=== PATIENT | female | born 1970 | race Caucasian/White ===

== ENCOUNTER → 2022-07-13 16:00 | Outpatient (BNVA) | payer OTHER, SELFPAY | PROVIDERS: Visit Provider Nurse Practitioner Women's Health | DX: N93.9 Abnormal uterine and vaginal bleeding, unspecified (principal) | CPT/HCPCS: 87624; 88305 ==

== ENCOUNTER → 2022-07-20 13:02 | Outpatient (BNVA) | payer OTHER, SELFPAY | PROVIDERS: Visit Provider Nurse Practitioner Women's Health | DX: N93.9 Abnormal uterine and vaginal bleeding, unspecified (principal); N85.2 Hypertrophy of uterus | CPT/HCPCS: 76830 ==

== ENCOUNTER 2022-09-27 11:51 | Observation (INO) | payer OTHER, MEDICAID, SELFPAY ==
[2022-09-26 13:31] VITALS: BMI 36.8
[2022-09-27] VITALS (12 sets, daily range): BP systolic 101–155; BP diastolic 61–91; PULSE 72–86; RESP 15–20; TEMP 36.1–36.7; O2SAT 90–98; BMI 36.8
[2022-09-27] MEDS: scopolamine 1.5 Patch 1 PATCH TRANSDERMA (08:36)
[2022-09-27 08:41] LABS: Basophils # 0.1 10^3/uL (0.0-0.1); Basophils % 0.7 %; Eosinophils # 0.1 10^3/uL (0.0-0.8); Eosinophils % 1.3 %; Hematocrit 45.2 % (37.0-47.0); Hemoglobin 14.7 g/dL (11.5-15.3); Lymphocytes % 23.2 %; Mean Corpuscular HGB Conc 32.5 g/dL (30.0-36.0); Mean Corpuscular Hemoglobin 29.9 pg (28.0-34.0); Mean Corpuscular Volume 92.1 fl (81-99); Mean Platelet Volume 11.3 fL (7.4-10.4); Monocytes # 0.6 10^3/uL (0.2-0.9); Monocytes % 7.3 %; Neutrophils # 5.65 10^3/uL (1.8-7.7); Neutrophils % 67.1 %; Nucleated Red Blood Cells % 0 %; Platelet Count 253 10^3/cmm (130-400); Red Blood Count 4.91 10^6/uL (4.1-5.3); Red Cell Distribution Width 14.1 % (12.1-15.1); White Blood Count 8.4 10^3/uL (4.0-10.0)
[2022-09-27] MEDS: sodium chloride 0.9% 500 ML IV (08:44)
[2022-09-27 09:00] LABS: OR HCG Qualitative Urine Negative (Negative)
[2022-09-27 09:22] LABS: Glucose Urine UA 2+ (Normal); Ketones Urine Negative (Negative); Protein Urine Trace (Negative); Urine Appearance Clear (CLEAR); Urine Color Yellow (Yellow); pH Urine 5 (5-7)
[2022-09-27 09:23] LABS: Add Urine Microscopic? YES; Bilirubin Urine 1+ (Negative); Blood Urine Trace (Negative); Leukocyte Esterase Urine 1+ (Negative); Nitrate Urine Negative (Negative); RBC Urine 0-4 /hpf (0-2); Urobilinogen Urine Neg (Negative)
[2022-09-27 09:24] LABS: Bacteria Urine 2+ /hpf; Mucus Urine TRACE /hpf; Squamous Epithelial Cell Urine 15-25 /hpf (0-5)
[2022-09-27 09:25] LABS: Add Urine Culture? No
--- NOTE | 2022-09-27 09:39 | ANES.PREANE2 ---
Pre-Anesthetic Assessment Height/Weight: Height 1.65 m Weight 100.244 kg O2 Del Method Room Air 09/27/22 08:12 Preop Diagnosis: Abnormal uterine bleeding, menorrhagia Operation Date: 09/27/22 10:10 Proposed Procedures p Total vaginal hysterectomy, bilateral salpingo-oophorectomy 37274, N93.9(Not Applicable) - Lacho Ho MD s Salpingo-Oophorectomy (Vaginal)(Not Applicable) - Lacho Ho MD Familial anesthetic complications: None Was Beta Carol Ann taken within 24 hours: Yes Was Clonidine taken within 24 hours: N/A Last intake: Intake Last Liquid Date 09/26/22 Last Liquid Time 18:00 Last Solid Date 09/26/22 Last Solid Time 18:00 Social No alcohol and No tobacco Exam alert, oriented x 3, clear to auscultation bilaterally and regular rate & rhythm Airway Mallampati: Class II Dentition: full Pulmonary Sleep Apnea CV/HEM Hypertension tricuspid regurge - no symptoms if on metoprolol per patient Metabolic Diabetes Mellitus and Hyperlipidemia Anesthetic Plan ASA status: 3 Anesthesia: General Risk of > 500 ml blood loss (7ml/kg in children): No Medications/Allergies Home Medications Medication Instructions Recorded Confirmed Last Taken Type buspirone 10 mg tablet 10 mg PO DAILY 07/13/22 09/27/22 09/13/22 History folic acid 1 mg tablet 1 mg PO DAILY 07/13/22 09/26/22 09/26/22 History glipizide 5 mg tablet 5 mg PO DAILY 07/13/22 09/26/22 09/26/22 History lisinopril 40 mg tablet 40 mg PO BID 07/13/22 09/26/22 09/26/22 History metoprolol succinate 100 mg 100 mg PO BID 07/13/22 09/27/22 09/27/22 06:30 History tablet,extended release 24 hr paroxetine HCl 20 mg tablet (Paxil) 20 mg PO DAILY 07/13/22 09/26/22 09/26/22 History simvastatin 40 mg tablet 40 mg PO DAILY 07/13/22 09/26/22 09/26/22 History tramadol 50 mg tablet 25 mg PO BEDTIME 07/13/22 09/26/22 09/25/22 History venlafaxine 150 mg 150 mg PO QAM 02/09/26/22 09/26/22 History capsule,extended release 24 hr gabapentin 300 mg capsule 300 mg PO 6XD PRN nerve pain 09/26/22 09/26/22 09/26/22 History Allergies Allergy/AdvReac Type Severity Reaction Status Date / Time meperidine [From Demerol] Allergy Intermediate difficulty Verified 09/26/22 13:53 breathing stadol Allergy Severe anaphalacti Uncoded 09/26/22 13:53 c macrobid Allergy Intermediate altered Uncoded 09/26/22 13:53 mental witch blade Allergy Intermediate urticaria Uncoded 09/26/22 13:53 PFSH Anesthesia Family History Sister Breast cancer breast cancer, diagnosed at 35. Unknown Breast cancer x2 maternal aunts with breast cancer unknown type. Other Diabetes Hypertension Lung disease Denies family history of Stroke Female Reproductive History Date of last menstrual period: 05/29/22 Data Anesthesia 09/27/22 08:25 09/27/22 09:19 Short CBC 09/27/22 Range/Units 08:25 WBC 8.4 (4.0-10.0) 10^3/uL Hgb 14.7 (11.5-15.3) g/dL Hct 45.2 (37.0-47.0) % MCV 92.1 (81-99) fl Plt Count 253 (130-400) 10^3/cmm Neut % (Auto) 67.1 % Neut # (Auto) 5.65 (1.8-7.7) 10^3/uL BMP 09/27/22 08:25 Sodium Cancelled Potassium Cancelled Chloride Cancelled Carbon Dioxide Cancelled BUN Cancelled Creatinine Cancelled Glucose Cancelled Calcium Cancelled Liver Function 09/27/22 Range/Units 08:25 Total Bilirubin Cancelled AST Cancelled ALT Cancelled Alkaline Phosphatase Cancelled Albumin Cancelled Urine 09/27/22 Range/Units 08:08 Urine Color Yellow (Yellow) Urine Appearance Clear (CLEAR) Urine pH 5 (5-7) Ur Specific [place] 1.030 (1.005-1.030) Urine Protein Trace (Negative) Urine Glucose (UA) 2+ H (Normal) Urine Ketones Negative (Negative) Urine Nitrate Negative (Negative) Urine Bilirubin 1+ H (Negative) Ur Leukocyte Esterase 1+ H (Negative) Urine RBC 0-4 H (0-2) /hpf Urine WBC 5-10 H (0-5) /hpf Blood Bank 09/27/22 08:25 Blood Type A Positive Rho(D) Type Positive Cardiac Studies: No Data to Display
[2022-09-27] MEDS: sodium chloride 0.9% 1,000 ML 30 ML IV (09:45)
[2022-09-27 10:09] LABS: Alanine Aminotransferase 15 U/L (0-33); Albumin Level 4.2 g/dL (3.5-5.2); Alkaline Phosphatase 86 U/L (35-105); Aspartate Amino Transferase 16 U/L (0-32); Blood Urea Nitrogen 11 mg/dL (6-20); Calcium 9.2 mg/dL (8.5-10.5); Carbon Dioxide 26 mmol/L (22-29); Chloride 97 mmol/L (98-107); Globulin 3.5 g/dL (1.3-4.6); Glomerular Filtration Rate 130.1 mL/min (90-130); Glucose 215 mg/dL (65-115); Osmolality Calculated 282 mOsm/kg (285-295); Sodium 133 mmol/L (136-145); Total Bilirubin 0.3 mg/dL (0.15-1.2); Total Protein 7.7 g/dL (6.6-8.7)
[2022-09-27 10:14] LABS: Anion Gap 14.1 (5-19); Potassium 4.1 mmol/L (3.5-5.1)
--- NOTE | 2022-09-27 10:29 | W.PM.OPSUD ---
Surgery/Procedure H&P Update DATE OF PROCEDURE: September 27, 2022 DATE H&P PERFORMED: 09/26/22 H&P UPDATE INFORMATION: I have reviewed H&P completed within last 30 days, I have examined patient prior to procedure and No changes to prior documentation PREOP DIAGNOSIS: Abnormal uterine bleeding, menorrhagia PLANNED PROCEDURE: Operation Date: 09/27/22 10:10 Proposed Procedures p Total vaginal hysterectomy, bilateral salpingo-oophorectomy 04676, N93.9(Not Applicable) - Lacho Ho MD s Salpingo-Oophorectomy (Vaginal)(Not Applicable) - Lacho Ho MD
[2022-09-27] MEDS: ceFOXitin 2,000 MG in sodium chloride 0.9% (plus) 50 ML 100 MG IV (10:40)
--- NOTE | 2022-09-27 11:52 | P.OP_ITS ---
Operative Report Date of procedure: September 27, 2022 Pre-op diagnosis: Preop Diagnosis Abnormal uterine bleeding, menorrhagia Post-op diagnosis: Same as above Procedure done: Total vaginal hysterectomy with bilateral salpingo-oophorectomy Specimens removed/disposition: Uterus. Left and right fallopian tube and ovaries Surgeon: Lacho Ho MD Estimated blood loss (mL): 50 IV fluids (mL): 800 Urine output (mL): 300 Complications: None Procedure: After informed consent and risks, benefits, indications and alternatives reviewed with the patient was taken to the operating room. The patient was placed in dorsal lithotomy position prepped, and draped in the usual sterile fashion. The pre-procedure timeout verifying the correct patient, procedure, site and side, could not requirements was performed and acknowledge by the OR team. A Montoya catheter was placed. A Bookwalter vaginal retractor was placed into the vagina in usual manner visualize the cervix. Cervix was grasped with a single tooth tenaculum and circumferentially infiltrated with 2% lidocaine with epinephrine. Then cervix was circumferentially incised with bovie and the bladder was dissected off the pubovesical cervical fascia anteriorly with a sponge stick and Metzenbaum scissors. The anterior peritoneal reflection was identified and the anterior cul-de-sac was entered sharply with Metzenbaum scissors. The same procedure was performed posteriorly and a posterior colpotomy was made through the posterior cul-de-sac space without difficulty and the posterior blade of the Bookwalter vaginal retractor was advanced posteriorly into the cul-de-sac. At this time, the left and right uterosacral ligaments were isolated and ligated with 0 Vicryl. The Enseal device was placed over the uterosacral ligaments on either side and was then used in a serial fashion up through the cardinal ligaments bilaterally cross-clamped, cut, and sealed with the Enseal device. Finally, the uterine arteries were cross-clamped, cut, sealed and ligated with the Enseal device. Hemostasis was assured. The broad ligaments were then serially clamped, sealed and cut with the Enseal device on both sides. Excellent hemostasis was visualized. Both cornua were clamped, sealed and cut with the Enseal device. Then the pedicles were then suture ligated with excellent hemostasis. The uterus was excised and submitted for pathologic evaluation. No other a bnormalities were noted in the pelvic cavity. Then the right side Infundibular ligament was identified. The ureter was confirmed along the pelvic side wall and peristalsis was noted. The Enseal elena ce was then used to clamp, sealed and transcepted at middistance, again being sure to be clear of the ureter and the fallopian tube and ovary were removed. The same process was then repeated on the left side. Good hemostasis was assure on both sides. The peritoneum was then closed in a pursestring fashion with 0 Vicryl suture. The vaginal cuff angles were closed with [id number] #0 Vicryl suture on both sides and transfixed with the ipsilateral cardinal and uterosacral ligaments. The remainder of the vaginal cuff was closed with #0 Vicryl in a running locked fashion. At this time, instruments were removed from the vagina at hemostasis assured. Then the Montoya catheter was noted placed yielding clear salud urine. The patient was taken out of dorsal lithotomy position and awakened from the general anesthesia. The patient tolerated the procedure well and was taken to the PACU recovery room in a stable condition. Sponge, lap, needle and instruments counts were correct x3.
[2022-09-27] MEDS: dextrose 5%-lactated ringers 1,000 ML 125 ML IV ×2 (13:16→21:08)
--- NOTE | 2022-09-27 14:07 | ANE.PACU2 ---
Inpatient post-anesthesia follow up: Airway intact: Yes Vital signs: Temperature 97.0 F Pulse Rate 73 Respiratory Rate 15 Blood Pressure 144/77 Pulse Oximetry 93 Oxygen Delivery Me thod Room Air Oxygen Flow Rate 6 Fraction of Inspir ed Oxygen Hydration adequate: Yes Nausea and vomiting: No Pain level: 1 Mental status: Baseline
[2022-09-27 17:04] LABS: Glucose Point of Care 322 mg/dL (70-110)
[2022-09-27 17:04] LABS: Glucose Point of Care 309 mg/dL (70-110)
[2022-09-27] MEDS: insulin lispro 100 unit/1 mL SUBCUT (17:27)
[2022-09-27] MEDS: ketorolac 30 mg/mL INJ IVP ×2 (18:05→21:48)
[2022-09-27] MEDS: docusate sodium 100 mg Capsule PO (18:05)
[2022-09-27] MEDS: lisinopril 20 mg Tablet 40 MG PO (18:06)
[2022-09-27] MEDS: gabapentin 300 mg Capsule PO ×2 (19:37→22:15)
[2022-09-27] MEDS: PARoxetine 20 mg Tablet PO (21:05)
[2022-09-27] MEDS: TRAMadol 50 mg Tablet 25 MG PO (21:05)
[2022-09-27] MEDS: metoprolol tartrate 50 mg Tablet 100 MG PO (21:08)
[2022-09-27] MEDS: simethicone 80 mg Chew PO (21:08)
[2022-09-28 01:51] LABS: Glucose Point of Care 309 mg/dL (70-110)
[2022-09-28 05:18] VITALS: BP 149/71; PULSE 69; TEMP 36.6; O2SAT 99
[2022-09-28] MEDS: venlafaxine ER (24HR) 150 mg Capsule PO (05:19)
[2022-09-28] MEDS: simethicone 80 mg Chew PO (05:19)
[2022-09-28] MEDS: gabapentin 300 mg Capsule PO (05:19)
[2022-09-28] MEDS: ketorolac 30 mg/mL INJ IVP (05:19)
[2022-09-28 05:33] LABS: Hematocrit 38.1 % (37.0-47.0); Hemoglobin 12.1 g/dL (11.5-15.3); Mean Corpuscular HGB Conc 31.8 g/dL (30.0-36.0); Mean Corpuscular Hemoglobin 29.2 pg (28.0-34.0); Mean Corpuscular Volume 91.8 fl (81-99); Mean Platelet Volume 11.2 fL (7.4-10.4); Platelet Count 198 10^3/cmm (130-400); Red Blood Count 4.15 10^6/uL (4.1-5.3); Red Cell Distribution Width 13.6 % (12.1-15.1); White Blood Count 10.8 10^3/uL (4.0-10.0)
--- NOTE | 2022-09-28 07:48 | P.DS_ITS ---
Discharge Providers ROTARY VENEER MACHINE OPERATOR Date of Admission: 09/27/22 11:51 Date of Discharge: 09/28/22 Attending Provider at Admission: Lacho Ho MD Attending Provider at Discharge: Lacho Ho MD Primary ROTARY VENEER MACHINE OPERATOR: Lacho Ho MD Primary Care Provider: Lisa Ashton APN Reason for Visit Reason for Visit: N93.9 Brief History: Mrs. Burgos is a 52-year-old female with a history of abnormal uterine bleeding unresponsive to medical management Hospital Course Hospital Course This is Roby 52-year-old female with a history of abnormal uterine bleeding unresponsive to medical management. Admitted for planned total vaginal hysterectomy with bilateral salpingo-oophorectomy. The procedure was performed without complication. Overnight observation was uneventful. She is afebrile hemodynamically stable postoperative day 1. Tolerating diet well. Ambulating without difficulty. Pain well under control. She was counseled regarding pelvic rest for 6 weeks (no sex, no tampons, no vaginal douches). Return to the emergency room if any fever, increased bleeding or pain. Physical Exam Narrative: GA: Alert and oriented ?3. HEENT: WNL. Heart: Regular rate and rhythm. Lungs: Clear to auscultation bilaterally. Abdomen: Bowel sounds present, nontender, minimal tenderness. MEDICAL SECRETARY RECEPTIONIST: spotting bleeding. Extremities: No edema, no cyanosis, no calves pain. Urinary Catheter Management: Montoya: Cath Placed During This Visit: yes Urinary Catheter Date of Insertion: 09/27/22 Urinary Catheter Time of Insertion: 11:07 History History History 8 Term 3 0 Miscarriages/Ectopic 5 Living Children 3 Discharge Data Studies Completed and Pending Pending at discharge Category Date Time Status Retype for Patiets ABO/Rh Routine Lab 09/27/22 05:17 Received Pathology: Surgical [PTH] Routine Pth 09/27/22 12:10 Received Laboratory Results WBC 10.8 10^3/uL (4.0-10.0) H 09/28/22 05:17 RBC 4.15 10^6/uL (4.1-5.3) 09/28/22 05:17 Hgb 12.1 g/dL (11.5-15.3) 09/28/22 05:17 Hct 38.1 % (37.0-47.0) 09/28/22 05:17 MCV 91.8 fl (81-99) 09/28/22 05:17 MCH 29.2 pg (28.0-34.0) 09/28/22 05:17 MCHC 31.8 g/dL (30.0-36.0) 09/28/22 05:17 RDW 13.6 % (12.1-15.1) 09/28/22 05:17 Plt Count 198 10^3/cmm (130-400) 09/28/22 05:17 MPV 11.2 fL (7.4-10.4) H 09/28/22 05:17 Neut % (Auto) 67.1 % 09/27/22 08:25 Lymph % (Auto) 23.2 % 09/27/22 08:25 [place] % (Auto) 7.3 % 09/27/22 08:25 Eos % (Auto) 1.3 % 09/27/22 08:25 Baso % (Auto) 0.7 % 09/27/22 08:25 Neut # (Auto) 5.65 10^3/uL (1.8-7.7) 09/27/22 08:25 Lymph # (Auto) 2.0 10^3/uL (0.8-4.8) 09/27/22 08:25 [place] # (Auto) 0.6 10^3/uL (0.2-0.9) 09/27/22 08:25 Eos # (Auto) 0.1 10^3/uL (0.0-0.8) 09/27/22 08:25 Baso # (Auto) 0.1 10^3/uL (0.0-0.1) 09/27/22 08:25 Nucleated RBC % (auto) 0 % 09/27/22 08:25 Nucleated RBCs # 0.0 /100WBC 09/27/22 08:25 Sodium 133 mmol/L (136-145) L 09/27/22 09:19 Potassium 4.1 mmol/L (3.5-5.1) 09/27/22 09:19 Chloride 97 mmol/L (98-107) L 09/27/22 09:19 Carbon Dioxide 26 mmol/L (22-29) 09/27/22 09:19 Anion Gap 14.1 (5-19) 09/27/22 09:19 BUN 11 mg/dL (6-20) 09/27/22 09:19 Creatinine 0.5 mg/dL (0.5-0.9) 09/27/22 09:19 GFR Calculation 130.1 mL/min (90-130) H 09/27/22 09:19 Glucose 215 mg/dL (65-115) H 09/27/22 09:19 POC Glucose 309 mg/dL (70-110) H 09/28/22 01:34 Calculated Osmolality 282 mOsm/kg (285-295) L 09/27/22 09:19 Calcium 9.2 mg/dL (8.5-10.5) 09/27/22 09:19 Total Bilirubin 0.3 mg/dL (0.15-1.2) 09/27/22 09:19 AST 16 U/L (0-32) 09/27/22 09:19 ALT 15 U/L (0-33) 09/27/22 09:19 Alkaline Phosphatase 86 U/L (35-105) 09/27/22 09:19 Total Protein 7.7 g/dL (6.6-8.7) 09/27/22 09:19 Albumin 4.2 g/dL (3.5-5.2) 09/27/22 09:19 Globulin 3.5 g/dL (1.3-4.6) 09/27/22 09:19 Urine Color Yellow (Yellow) 09/27/22 08:08 Urine Appearance Clear (CLEAR) 09/27/22 08:08 Urine pH 5 (5-7) 09/27/22 08:08 Ur Specific [place] 1.030 (1.005-1.030) 09/27/22 08:08 Urine Protein Trace (Negative) 09/27/22 08:08 Urine Glucose (UA) 2+ (Normal) H 09/27/22 08:08 Urine Ketones Negative (Negative) 09/27/22 08:08 Urine Blood Trace (Negative) H 09/27/22 08:08 Urine Nitrate Negative (Negative) 09/27/22 08:08 Urine Bilirubin 1+ (Negative) H 09/27/22 08:08 Urine Urobilinogen Neg mg/dL (Negative) 09/27/22 08:08 Ur Leukocyte Esterase 1+ (Negative) H 09/27/22 08:08 Urine RBC 0-4 /hpf (0-2) H 09/27/22 08:08 Urine WBC 5-10 /hpf (0-5) H 09/27/22 08:08 Ur Squamous Epith Cells 15-25 /hpf (0-5) H 09/27/22 08:08 Amorphous Sediment Not Reportable 09/27/22 08:08 Urine Bacteria 2+ /hpf (NONE) H 09/27/22 08:08 Urine Mucus Trace /hpf 09/27/22 08:08 Urine HCG, Qual Negative (Negative) 09/27/22 08:08 Blood Type A Positive 09/27/22 08:25 Rho(D) Type Positive 09/27/22 08:25 Antibody Screen Negative 09/27/22 08:25 Vitals Last Vital Signs Temp 97.8 F 09/28/22 05:18 Pulse 69 09/28/22 05:18 Resp 17 09/27/22 17:37 BP 149/71 09/28/22 05:18 Pulse Ox 99 09/28/22 05:18 O2 Del Method Room Air 09/28/22 05:18 O2 Flow Rate 6 09/27/22 12:10 Discharge Plan Discharge Patient Disposition: Home Condition: Stable Prescriptions: New hydrocodone-acetaminophen 5-325 mg tablet 1 tab PO Q4H PRN (Reason: pain) Qty: 20 0RF estradiol 0.5 mg tablet 0.5 mg PO DAILY 30 Days Qty: 30 0RF Rx Instructions: off 5 days; repeat cycle acetaminophen 325 mg capsule 325 mg PO Q4H PRN (Reason: fever or postoperative pain) Qty: 60 0RF Continued metoprolol succinate 100 mg tablet extended release 24 hr 100 mg PO BID lisinopril 40 mg tablet 40 mg PO BID simvastatin 40 mg tablet 40 mg PO DAILY venlafaxine 150 mg capsule,extended release 24hr 150 mg PO QAM paroxetine HCl [Paxil] 20 mg tablet 20 mg PO DAILY folic acid 1 mg tablet 1 mg PO DAILY tramadol 50 mg tablet 25 mg PO BEDTIME buspirone 10 mg tablet 10 mg PO DAILY glipizide 5 mg tablet 5 mg PO DAILY gabapentin 300 mg Capsule 300 mg PO 6XD PRN (Reason: nerve pain) Discharge Orders: Discharge Order (Routine); Ordered 09/28/22 Ordered By: Lacho Ho Referrals: Lacho Ho MD [Physician] - 3 weeks Discharge Diet: Diabetic Discharge Activity: Limit activity as instructed Patient Instructions: Salpingo-Oophorectomy (GEN), Vaginal Hysterectomy (GEN), Opioid Safety Activity Restrictions/Additional Instructions: 1. Please call [facility] on next working day to make your post-operative appointment in 2 weeks. 2. Please stay home until you come back to the clinic on first post- hospatilization check up. 3. Please follow instructions on your medications CAREFULLY. 4. If you have abdominal incision, do not cover it unless dressing is necessary because of drainage. OK to shower, but avoid bath. Leave steri-strips until they fall off. If they are still on one week after surgery, you may remove them. 5. If you had vaginal surgery or vaginal repair, Dr. Ho may instruct you to take SITZ bath. 6. Yellow, blood tinged odorous vaginal discharge is usually normal after hysterectomy or vaginal surgeries. 7. No SEXUAL INTERCOURSE, tampons, or douches until you are completely released from the post-operative care. 8. Avoid constipation by eating right and maybe using some Metamucil or Milk of Magnesia. 9. All prescription refills are given during the working hours. Please do no wait till it runs out. Call the clinic at [phone] before your medication runs out. The clinic will get in touch with your doctor to prescribe medications if necessary. 10. Please remain within 40 mile radius from our hospital because emergencies do happen now and then during the post-operative period. 11. If you have stairs at home, take one step at a time slowly and minimize the number of trips. It helps to stay in one floor for the next few days. No lifting except what you can lift by one hand until you are released from the post-operative care. 12. Driving is discouraged until you are well healed. It may be 3-4 weeks before you feel strong enough to drive. You should be able to turn and look through the rear window without pain and you should be able to push the brake pedal very hard without pain before you drive. No fast rules, but SAFETY should be your primary concern. DO NOT drive if you are on sedating medications such as narcotics. 13. Call the clinic (during working hours) to make urgent appointment or go to the Emergency room, if any of the following occurs: i. Vaginal bleeding becomes heavy, more than a period. ii. Incision becomes red and sore, or drains pus. iii. Your TEMPERATURE is over 100.4F or you have chill. iv. IV site becomes red and swollen (a little ``knot?? is usually OK) v. Persistent nausea and vomiting vi. Persistent constipation or diarrhea vii. Rash or allergic reaction to medications. Discharge Attestations ROTARY VENEER MACHINE OPERATOR Time Spent in Discharge Care*: greater than 30 min Coding Level of Care Code Acute Code for Chg Fwd Diagnoses
[2022-09-28] MEDS: lisinopril 20 mg Tablet 40 MG PO (09:43)
[2022-09-28] MEDS: docusate sodium 100 mg Capsule PO (09:43)
[2022-09-28] MEDS: folic acid 1 mg Tablet PO (09:43)
[2022-09-28] MEDS: atorvastatin 40 mg Tablet 20 MG PO (09:43)
[2022-09-28] MEDS: BuSPIRONE 10 mg Tablet PO (09:43)
[2022-09-28 10:46] VITALS: BP 136/79; PULSE 66; RESP 18; TEMP 36.6; O2SAT 97
[2022-09-28] MEDS: metoprolol tartrate 50 mg Tablet 100 MG PO (10:46)
[2022-09-28 11:31] VITALS: BP 136/79; PULSE 66; RESP 18; TEMP 36.6; O2SAT 97
== END 2022-09-28 11:09 | disposition home or self-care (01) ==
LOC: OBGYN 11:52
PROVIDERS: Admitting Provider Obstetrics & Gynecology; PCP Nurse Practitioner Family; Visit Provider Obstetrics & Gynecology
PROC: (CPT 58262; principal; 2022-09-27 10:00)
PROC: (CPT 58720; 2022-09-27 10:00)
DX: N93.9 Abnormal uterine and vaginal bleeding, unspecified (principal); N92.0 Excessive and frequent menstruation with regular cycle; E11.9 Type 2 diabetes mellitus without complications; I10 Essential (primary) hypertension; E78.5 Hyperlipidemia, unspecified; Z79.84 Long term (current) use of oral hypoglycemic drugs; Z79.899 Other long term (current) drug therapy
CPT/HCPCS: 58262; 36415; 36416; 80053; 81001; 81025; 82962; 84703; 85025; 85027; 86850; 86900; 88307; 96372; 96374; 96376; G0378; J0694; J1100; J1170; J1200; J1815; J1885; J2250; J2405; J2704; J2710; J3010; J3490; J7030; J7040; J7121